=== PATIENT | male | born 1975 | race Two or more races ===

== ENCOUNTER 2017-12-21 15:51 | Emergency (ER) | payer MEDICAID ==
[2017-12-21 15:58] VITALS: BP 135/85
--- NOTE | 2017-12-21 16:28 | ER Document Report ---
HPI - HPI Patient complains to provider of: Dental pain Onset/Duration: Persistent Quality of pain: Achy Pain Level: 4 Context: Patient complains of dental pain to left lower jaw. Patient without any facial swelling or fever Associated Symptoms: Other - Toothache. denies: Fever Exacerbated by: Denies Relieved by: Denies Similar symptoms previously: Yes Recently seen / treated by doctor: No - ROS ROS below otherwise negative: Yes Systems Reviewed and Negative: Yes All other systems reviewed and negative - EENT EENT: DENIES: Eye problems - GASTROINTESTINAL Gastrointestinal: DENIES: Patient vomiting - MUSCULOSKELETAL Musculoskeletal: DENIES: Back Pain, Neck Pain - DERM Skin Color: Normal Skin Problems: None Past Medical History - General Information source: Patient - Social History Smoking Status: Never Smoker Frequency of alcohol use: None Drug Abuse: None Occupation: Contractor Family History: Reviewed & Not Pertinent Musculoskeltal Medical History: Reports Other - Chronic back pain Surgical Hx: Negative Vertical Provider Document - CONSTITUTIONAL Agree With Documented VS: Yes Exam Limitations: No Limitations General Appearance: WD/WN, No Apparent Distress - INFECTION CONTROL TRAVEL OUTSIDE OF THE [place] IN LAST 30 DAYS: No - HEENT HEENT: Atraumatic, Normocephalic Mouth Diagram: 1 - Tenderness, no abscess, no trismus, no sublingual or submental swelling - NECK Neck: Normal Inspection, Supple. negative: Lymphadenopathy-Left, Lymphadenopathy-Right - RESPIRATORY Respiratory: Breath Sounds Normal, No Respiratory Distress O2 Sat by Pulse Oximetry: 98 - CARDIOVASCULAR Cardiovascular: Regular Rate, Regular Rhythm - MUSCULOSKELETAL/EXTREMETIES Musculoskeletal/Extremeties: MAEW - NEURO Level of Consciousness: Awake, Alert, Appropriate Motor/Sensory: No Motor Deficit - DERM Integumentary: Warm, Dry, No Rash Course - Re-evaluation Re-evalutation: 12/21/17 16:[address] Menchaca regarding patient's pain management. States that if patient pain symptoms seem legitimate may give a short course of medication to treat his pain symptoms. - Vital Signs Vital signs: Temp Pulse Resp BP Pulse Ox 98.6 F 79 16 135/85 H 98 12/21/17 15:57 12/21/17 15:57 12/21/17 15:57 12/21/17 15:57 12/21/17 15:57 Discharge - Discharge Clinical Impression: Toothache Condition: Stable Disposition: HOME, SELF-CARE Instructions: Family Physicians / Practices, Oral Narcotic Medication (OM), Penicillin V K (OM), Toothache ([facility]) Additional Instructions: Return immediately for any new or worsening symptoms Followup with your primary care provider, call tomorrow to make a followup appointment Follow-up with a dental care provider Prescriptions: Acetaminophen with Codeine [Acetaminophen-Cod #3 Tablet] 1 each PO Q6 PRN #12 tablet PRN Reason: Naproxen [Naprosyn 250 Nmg Tablet] 1 tab PO BID #14 tablet Penicillin V Potassium [Penicillin Vk 500 mg Tablet] 500 mg PO BID #20 tablet Referrals: [facility] [Provider Group] - Follow up as needed [facility] [Provider Group] - Follow up as needed
== END 2017-12-21 16:45 | disposition home or self-care (01) ==
LOC: ER 15:51
DX: K08.89 Other specified disorders of teeth and supporting structures (principal)
CPT/HCPCS: 99282

== ENCOUNTER 2017-12-22 01:54 | Emergency (ER) | payer SELFPAY ==
[2017-12-22] MEDS ORDERED: CLONIDINE 0.1 MG/24 HR PATCH.TDWK TD ONE (03:00)
[2017-12-22] MEDS ORDERED: ONDANSETRON ODT 4 MG TAB (6 TAB/ER DISP) PO PRN (03:00)
[2017-12-22] MEDS ORDERED: GABAPENTIN 300 MG CAPSULE PO ONE (03:01)
--- NOTE | 2017-12-22 03:01 | ER Document Report ---
ED General - General Chief Complaint: Cold Symptoms Stated Complaint: WITHDRAWALS Time Seen by Provider: 12/22/17 02:43 Notes: Patient is a 42-year-old male with a past medical history of chronic back pain with chronic opiate use who presents with withdrawal symptoms. Patient states that he ran out of his medication which is Percocet approximately 24 hours ago. He states that since that time he has had progressive worsening of shakes, chills, nausea, vomiting, and diffuse body aching. He states that this is consistent with symptoms he has had in the past when he has run out of medications. He is here working at [employer] and recently drove here from [place]. He therefore is unable to discuss with his primary care doctor. He is requesting medication so he can sleep tonight. Nothing improves or worsens his symptoms. TRAVEL OUTSIDE OF THE [place] IN LAST 30 DAYS: No - Related Data Allergies/Adverse Reactions: No Known Allergies Allergy (Unverified 12/21/17 15:54) Past Medical History - General Information source: Patient - Social History Smoking Status: Never Smoker Frequency of alcohol use: None Drug Abuse: Prescription drugs Lives with: Family Family History: Reviewed & Not Pertinent Renal/ Medical History: Denies: Hx Peritoneal Dialysis Review of Systems - Review of Systems Notes: Constitutional: Negative for fever. Positive for body aching HENT: Negative for sore throat. Eyes: Negative for visual changes. Cardiovascular: Negative for chest pain. Respiratory: Negative for shortness of breath. Gastrointestinal: Negative for abdominal pain, positive for nausea Genitourinary: Negative for dysuria. Musculoskeletal: Positive for back pain. Skin: Negative for rash. Neurological: Negative for headaches, weakness or numbness. 10 point ROS negative except as marked above and in HPI. Physical Exam - Vital signs Interpretation: Normal Notes: PHYSICAL EXAMINATION: GENERAL: Appears uncomfortable but no acute distress HEAD: Atraumatic, normocephalic. EYES: Pupils equal round and reactive to light, extraocular movements intact, sclera anicteric, conjunctiva are normal. ENT: nares patent, oropharynx clear without exudates. Moist mucous membranes. NECK: Normal range of motion, supple without lymphadenopathy LUNGS: Breath sounds clear to auscultation bilaterally and equal. No wheezes rales or rhonchi. HEART: Regular rate and rhythm without murmurs ABDOMEN: Soft, nontender, normoactive bowel sounds. No guarding, no rebound. No masses appreciated. EXTREMITIES: Normal range of motion, no pitting or edema. No cyanosis. NEUROLOGICAL: No focal neurological deficits. Moves all extremities spontaneously and on command. PSYCH: Moderately anxious, tremulous SKIN: Warm, Dry, normal turgor, no rashes or lesions noted. Course - Re-evaluation Re-evalutation: 12/22/17 02:57 Patient presents with symptoms consistent with acute narcotic withdrawal. Patient has chronically on Percocet for the past 13 years as prescribed by his primary physician in [place] for chronic low back pain. I have informed the patient that I cannot unfortunately give him any additional narcotic pain medications but am able to offer him medicines to assist with his withdrawal. Patient is agreeable to this plan. He will be started on clonidine patch, given gabapentin which he can take to assist with withdrawal and assistance for sleep. Will also give Zofran as needed for nausea. At this time will discharge with return precautions and follow-up recommendations. Verbal discharge instructions given a the bedside and opportunity for questions given. Medication warnings reviewed. Patient is in agreement with this plan and has verbalized understanding of return precautions and the need for primary care follow-up in the next 24-72 hours. Discharge - Discharge Clinical Impression: Narcotic withdrawal, Narcotic dependence Chronic low back pain Qualifiers: Back pain laterality: unspecified Sciatica presence: without sciatica Qualified Code(s): M54.5 - Low back pain Condition: Good Disposition: HOME, SELF-CARE Additional Instructions: Your seen today for concerns of withdrawing from opiates. Opiate withdrawal is very uncomfortable but is not dangerous. The acute withdrawal phase will last for approximately 1 week and will consist of body aches, headache, nausea, vomiting, diarrhea, and abdominal pain. Sleeping can be difficult. You may also feel depressed or anxious. After the acute withdrawal is finished, it is very common to have chronic opiate withdrawal that can last for months. This can consist of feeling depressed and having cravings for opiates. I strongly encourage you to enroll in an outpatient rehab program and consider going on a medication such as Suboxone to prevent relapse. To help manage your acute withdrawal symptoms your are being sent home with a clonidine patch on. You may keep this patch on for up to 1 week. You have also been sent home with a prescription for a medication called gabapentin. You may take 600 mg nightly again to assist with sleep and withdrawal symptoms. You may take the Zofran also known as ondansetron that she were sent home with as needed for nausea and vomiting. Please return if you become suicidal, have persistent vomiting that prevents you from being able to take fluids for more than 12 hours, you pass out , or you have any other symptoms that are worrisome to you. Prescriptions: Gabapentin 600 mg PO QHS PRN #20 tablet PRN Reason:
[2017-12-22 03:37] VITALS: BP 134/80
== END 2017-12-22 03:37 | disposition home or self-care (01) ==
LOC: ER 01:54
DX: F19.239 Other psychoactive substance dependence with withdrawal, unspecified (principal); F11.20 Opioid dependence, uncomplicated; M54.5 Low back pain; G89.29 Other chronic pain; M54.9 Dorsalgia, unspecified; R11.2 Nausea with vomiting, unspecified; M79.1 Myalgia; Z79.899 Other long term (current) drug therapy
CPT/HCPCS: 99283; J3490